=== PATIENT | female | born 1995 | race American Indian/Alaskan Native ===

== ENCOUNTER 2018-10-06 17:00 | Inpatient (IN) | payer OTHER ==
--- NOTE | 2018-10-06 17:41 | Emergency Department Report ---
HPI - General Chief Complaint: Dizziness Time Seen by Provider: 10/06/18 17:40 - HPI HPI: Room 8 The patient is 23-year-old female presenting with a chief complaint of dizziness. States for one day she's felt dizzy and drowsy. Patient complains of diffuse weakness. The patient has a history of Graves' disease and was started on methimazole approximately 2 weeks ago. The patient states earlier she had lower abdominal pain but it has since resolved. Patient states she's had intermittent headache today as well. Patient currently denies pain naus ea/vomiting or shortness of breath. Patient states her main complaint is feeling drowsy currently Location: [See above] Duration: One day Quality: Drowsy Severity: Moderate Modifying factors: [see above] Context: [see above] Mode of transportation: Unknown ED Past Medical Hx - Past Medical History Additional medical history: GRAVES DISEASE - Surgical History Past Surgical History?: No - Family History Family history: no significant - Social History Smoking Status: Never Smoker Substance Use Type: None (denies illicit drug use), Alcohol (occasional) ED Review of Systems ROS: Stated complaint: DIZZY/FATIGUE/THRYOID Other details as noted in HPI Constitutional: weakness Eyes: denies: eye pain ENT: denies: throat pain Respiratory: denies: shortness of breath Cardiovascular: denies: chest pain Endocrine: no symptoms reported Gastrointestinal: abdominal pain. denies: nausea, vomiting Genitourinary: denies: dysuria Musculoskeletal: denies: back pain Neurological: headache, other (dizziness) Physical Exam - Physical Exam Vital Signs: Vital Signs 10/06/18 17:15 Temperature 99.9 F H Pulse Rate 126 H Respiratory 18 Rate Blood Pressure 151/85 O2 Sat by Pulse 99 Oximetry Physical Exam: GENERAL: The patient is well-developed well-nourished female lying on stretcher not appearing to be in acute distress. [] HEENT: Normocephalic. Atraumatic. Extraocular motions are intact. Patient has moist mucous membranes. NECK: Supple. Trachea midline CHEST/LUNGS: Clear to auscultation. There is no respiratory distress noted. HEART/CARDIOVASCULAR: Regular. There is tachycardia. There is no gallop rub or murmur. ABDOMEN: Abdomen is soft, nontender. Patient has normal bowel sounds. There is no abdominal distention. SKIN: There is no rash. There is no edema. There is no diaphoresis. NEURO: The patient is awake, alert, and oriented. The patient is cooperative. The patient has no focal neurologic deficits. The patient has normal speech. Cranial nerves II through XII grossly intact, no drift MUSCULOSKELETAL: There is no evidence of acute injury. ED Course Vital Signs 10/06/18 17:15 Temperature 99.9 F H Pulse Rate 126 H Respiratory 18 Rate Blood Pressure 151/85 O2 Sat by Pulse 99 Oximetry ED Medical Decision Making - Lab Data Result diagrams: 10/06/18 17:41 10/06/18 17:41 Laboratory Tests 10/06/18 10/06/18 10/06/18 17:41 17:41 17:41 WBC 4.1 L RBC 4.46 Hgb 13.1 Hct 39.3 MCV 88 MCH 29 MCHC 33 RDW 12.8 L Plt Count 270 Sodium 138 Potassium 4.2 Chloride 100.9 Carbon Dioxide 25 Anion Gap 16 BUN 8 Creatinine 0.7 Estimated GFR > 60 BUN/Creatinine Ratio 11 Glucose 101 H Calcium 9.4 TSH 0.007 L Free T4 2.09 H Urine Color Urine Turbidity Urine pH Ur Specific Penn Urine Protein Urine Glucose (UA) Urine Ketones Urine Blood Urine Nitrite Urine Bilirubin Urine Urobilinogen Ur Leukocyte Esterase Urine WBC (Auto) Urine RBC (Auto) U Epithel Cells (Auto) Urine Mucus Urine HCG, Qual 10/06/18 17:47 WBC RBC Hgb Hct MCV MCH MCHC RDW Plt Count Sodium Potassium Chloride Carbon Dioxide Anion Gap BUN Creatinine Estimated GFR BUN/Creatinine Ratio Glucose Calcium TSH Free T4 Urine Color Yellow Urine Turbidity Clear Urine pH 8.0 H Ur Specific Penn 1.017 Urine Protein <15 mg/dl Urine Glucose (UA) Neg Urine Ketones Neg Urine Blood Neg Urine Nitrite Neg Urine Bilirubin Neg Urine Urobilinogen 2.0 Ur Leukocyte Esterase Mod Urine WBC (Auto) 4.0 Urine RBC (Auto) 3.0 U Epithel Cells (Auto) 5.0 Urine Mucus Few Urine HCG, Qual Negative - EKG Data -: EKG Interpreted by Md EKG shows normal: sinus rhythm Rate: tachycardia (110 bpm) - EKG Data When compared to previous EKG there are: previous EKG unavailable Interpretation: other (no ischemic changes seen) - Radiology Data Radiology results: report reviewed (CT head), image reviewed (CT head) [facility] [address] [place] [address] Cat Scan Report Signed Patient: SATHISH WANG MR#: [id number] : 1995 Acct:[id number] Age/Sex: 23 / F ADM Date: 10/06/18 Loc: ED Attending Dr: Ordering Physician: ADRI LEONARD MD Date of Service: 10/06/18 Procedure(s): CT head/brain wo con Accession Number(s): [id number] cc: ADRI LEONARD MD FINAL REPORT EXAM: CT HEAD/BRAIN WO CON HISTORY: dizziness, drowsiness TECHNIQUE: 2.5 millimeter axial images from the skullbase to the vertex. Comparison: None FINDINGS: There is no evidence of an acute intracranial process, intracranial hemorrhage or mass effect. The ventricles are normal size. The visualized portions of the orbits, paranasal and mastoid sinuses are unremarkable. The bony structures are unremarkable. IMPRESSION: 1. Normal study. If the patient remains symptomatic MRI may be helpful for further evaluation Transcribed By: ED Dictated By: LYLA GARCIA MD Electronically Authenticated By: LYLA GARCIA MD Signed Date/Time: 10/06/181841 DD/ 40 TD/TT: 10/06/181840 - Medical Decision Making Patient's heart rate continues to fluctuate between 109 and 133. Will administer propanolol and admit the patient to the hospital for further observation - Differential Diagnosis thyrotoxicosis, thyroid storm, symptomatic anemia, hyponatremia Critical care attestation.: If time is entered above; I have spent that time in minutes in the direct care of this critically ill patient, excluding procedure time. ED Disposition Clinical Impression: Thyrotoxicosis, Graves disease, Tachycardia Disposition: OP ADMIT IP TO THIS HOSP Is pt being admited?: Yes Does the pt Need Aspirin: Yes Condition: Fair Time of Disposition: 19:30 (hospitalist paged (Dr Muro))
[2018-10-06 17:47] LABS: Hematocrit 39.3 % (30.3-42.9); Hemoglobin 13.1 gm/dl (10.1-14.3); Mean Corpuscular HGB Conc 33 % (30-34); Mean Corpuscular Volume 88 fl (79-97); Platelet Count 270 K/mm3 (140-440); Red Blood Count 4.46 M/mm3 (3.65-5.03); Red Cell Distribution Width 12.8 % (13.2-15.2)
[2018-10-06] MEDS ORDERED: NACL 0.9% 1000 ML 1,000 ML IV ONE (17:55)
[2018-10-06 18:02] LABS: BUN/Creatinine Ratio 11; Blood Urea Nitrogen 8 mg/dL (7-17); Calcium 9.4 mg/dL (8.4-10.2); Hemolysis Index 0
[2018-10-06 18:03] LABS: Bilirubin,Urine NEG (Negative); Blood,Urine NEG (Negative); Color,Urine Yellow (Yellow); Mucus,Urine FEW /HPF; Protein,Urine <15 mg/dL mg/dL (Negative)
[2018-10-06 18:12] LABS: Free T4 (Free Thyroxine) 2.09 ng/dL (0.76-1.46)
[2018-10-06 18:21] LABS: HCG Qualitative,Urine Negative (Negative)
--- NOTE | 2018-10-06 18:42 | Cat Scan Report ---
FINAL REPORT EXAM: CT HEAD/BRAIN WO CON HISTORY: dizziness, drowsiness TECHNIQUE: 2.5 millimeter axial images from the skullbase to the vertex. Comparison: None FINDINGS: There is no evidence of an acute intracranial process, intracranial hemorrhage or mass effect. The ventricles are normal size. The visualized portions of the orbits, paranasal and mastoid sinuses are unremarkable. The bony structures are unremarkable. IMPRESSION: 1. Normal study. If the patient remains symptomatic MRI may be helpful for further evaluation
[2018-10-06] MEDS ORDERED: INDERAL IV ONE (19:29)
[2018-10-06] MEDS ORDERED: TYLENOL PO PRN (22:45)
[2018-10-06] MEDS ORDERED: SODIUM CHLORIDE FLUSH SYRINGE 10 ML IV PRN (22:45)
[2018-10-06] MEDS ORDERED: ZOFRAN IV PRN (22:45)
--- NOTE | 2018-10-06 22:49 | History and Physical Report ---
History of Present Illness Date of examination: 10/06/18 Date of admission: 10/06/18 19:32 History of present illness: 23-year-old woman with a history of Graves' disease, diagnosed 2 weeks ago comes emergency room complaining of fatigue, palpitations, feeling dizzy. In the last month she's been having fatigue and diaphoresis and symptoms are improved when she was started on methimazole Review of systems Constitutional: no weight loss, chills, fever Ears, eyes, nose, mouth and throat: no nasal congestion, no nasal discharge, no sinus pressure, no vision change, no red eye. Neck: No neck pain or rigidity. Cardiovascular: no palpitations, chest pain Respiratory: no cough, shortness of breath Gastrointestinal: no hematochezia, abdominal pain Genitourinary : no frequency , no hematuria Musculoskeletal: no joint swelling or muscle ache Integumentary: no rash, no pruritis Neurological: no parathesias, no focal weakness Endocrine: no cold or heat intolerance, no polyuria or polydipsia Hematologic/Lymphatic: no easy bruising, no easy bleeding, no gland swelling Allergic/Immunologic: no urticaria, no angioedema. PAST MEDICAL HISTORY: Graves' disease, PAST SURGICAL HISTORY: None SOCIAL HISTORY: Denies alcohol, drugs, +tobacco FAMILY HISTORY: Hypertension Medications and Allergies Allergies Allergy/AdvReac Type Severity Reaction Status Date / Time No Known Allergies Allergy Unverified 10/06/18 17:21 Home Medications Medication Instructions Recorded Confirmed Last Taken Type Methimazole 10 mg PO DAILY #30 tab 10/07/18 Unknown Rx RX: Propranolol LA [Inderal LA] 60 mg PO QDAY #30 capsule 10/07/18 Unknown Rx Active Meds: Active Medications Acetaminophen (Tylenol) 650 mg PO Q4H PRN PRN Reason: Pain MILD(1-3)/Fever >100.5/PEREZ Ondansetron HCl (Zofran) 4 mg IV Q8H PRN PRN Reason: Nausea And Vomiting Propranolol HCl (Inderal La) 30 mg PO QDAY IRAM Sodium Chloride (Sodium Chloride Flush Syringe 10 Ml) 10 ml IV BID IRAM Sodium Chloride (Sodium Chloride Flush Syringe 10 Ml) 10 ml IV PRN PRN PRN Reason: LINE FLUSH Exam - Physical Exam Narrative exam: General Apperance: The patient lying in bed, breathing comfortable HEENT: Normocephalic, atraumatic. Pupils equally round and reactive to light, EOMI, no sclericterus or JVD or thyromegaly or nodule. , no carotid bruit, mucous membranes moist, no exudate or erythema Heart: S1-S2, regular is rhythm Lungs: Clear to auscultation bilaterally, breathing comfortable Abdomen: Positive bowel sounds, soft, nontender, nondistended, no organomegaly Extremities: No edema cyanosis clubbing Skin: no rash, nodule, warm and dry Neuro: cranial nerves 2-12 intact, speech is fluent, motor/sensory intact - Constitutional Vitals: Temp Pulse Resp BP Pulse Ox 97.6 F 101 H 18 125/66 100 10/06/18 19:51 10/06/18 21:30 10/06/18 21:30 10/06/18 21:30 10/06/18 21:30 Results - Labs CBC & Chem 7: 10/06/18 17:41 10/07/18 05:33 Labs: Abnormal lab results 10/06/18 10/06/18 10/06/18 Range/Units 17:41 17:41 17:41 WBC 4.1 L (4.5-11.0) K/mm3 RDW 12.8 L (13.2-15.2) % Glucose 101 H (65-100) mg/dL TSH 0.007 L (0.270-4.200) mlU/mL Free T4 2.09 H (0.76-1.46) ng/dL Urine pH (5.0-7.0) 10/06/18 Range/Units 17:47 WBC (4.5-11.0) K/mm3 RDW (13.2-15.2) % Glucose (65-100) mg/dL TSH (0.270-4.200) mlU/mL Free T4 (0.76-1.46) ng/dL Urine pH 8.0 H (5.0-7.0) - Imaging and Cardiology EKG: image reviewed Chest x-ray: report reviewed CT Scan - head: report reviewed Assessment and Plan Assessment Palpitations secondary to Graves' disease Graves' disease Plan Start propanolol, continue with methimazole Check cardiac enzymes, urine toxicology DVT prophylaxis
--- NOTE | 2018-10-06 23:37 | XRay Report ---
FINAL REPORT EXAM: XR CHEST 1V AP HISTORY: tachycardia TECHNIQUE: Frontal portable view of the chest Comparison: None FINDINGS: There is no evidence of infiltrate, pneumothorax or pleural fluid collection. The cardiomediastinal silhouette is normal in appearance. The bony structures are unremarkable. IMPRESSION: 1. No evidence of an acute pulmonary process.
[2018-10-07 02:29] LABS: Creatine Kinase MB < 1.0 ng/mL (0.0-4.0)
[2018-10-07 06:32] LABS: BUN/Creatinine Ratio 14; Blood Urea Nitrogen 7 mg/dL (7-17); Calcium 9.1 mg/dL (8.4-10.2); Hemolysis Index 0
[2018-10-07 06:42] LABS: Creatine Kinase MB < 1.0 ng/mL (0.0-4.0)
[2018-10-07] MEDS ORDERED: SODIUM CHLORIDE FLUSH SYRINGE 10 ML IV SCH (10:00)
[2018-10-07] MEDS ORDERED: INDERAL LA PO SCH (10:00)
--- NOTE | 2018-10-07 12:08 | Discharge Summary ---
Providers - Providers Date of Admission: 10/06/18 19:32 Date of discharge: 10/07/18 Attending physician: MONTEZ ALCOCER Primary care physician: LOUISE BECERRIL Hospitalization Condition: Stable Hospital course: Patient is a 23-year-old woman with a history of recently diagnosis Graves' disease (not diagnosis here) and was started on Tapezole who presented to [facility] ED with fatigue, palpitations and dizzy. Heart rate was up to 126. She was started successfully on Propranolol which resolved symptoms and the tachycardia. Palpitations secondary to Graves' disease Graves' disease Tachycardia with hyperthyroidism Disposition: DC- TO HOME OR SELFCARE Time spent for discharge: 32 minutes Core Measure Documentation - Palliative Care Palliative Care/ Comfort Measures: Not Applicable - Core Measures Any of the following diagnoses?: none - VTE Discharge Requirements Deep Vein Thrombosis/Pulmonary Embolism Present on Admission: No Has pt received <5 days of overlap therapy or INR<2.0: No Anticoagulant overlap therapy prescribed at discharge: No Contraindication No Overlap Therapy order at DC: Not Indicated Exam - Physical Exam Narrative exam: Gen: WDWN, NAD, Awake, Alert, Orientated HEENT: NCAT, EOMI, PERRL, OP Clear Neck: supple, no adenopathy, no thyromegaly, no JVD CVS/Heart: RRR, normal S1S2, pulses present bilaterally Chest/Lungs: CTA B, Symmetrical chest expansion, good air entry bilaterally GI/Abdomen: soft, NTND, good bowel sounds, no guarding or rebound /Bladder: no suprapubic tenderness, no CVA or paraspinal tenderness Extermity/Skin: no c/c/e, no obvious rash MSK: FROM x 4 Neuro: CN 2-12 grossly intact, no new focal deficits Psych: calm - Constitutional Vitals: Temp Pulse Resp BP Pulse Ox 98.2 F 92 H 20 124/61 100 10/07/18 08:43 10/07/18 10:39 10/07/18 08:43 10/07/18 10:39 10/07/18 11:43 Plan Activity: other (no strenous activity unless cleared by PCP) Diet: regular Additional Instructions: I would not recommend unless cleared by PCP Follow up with: LOUSIE BECERRIL MD [Primary Care Provider] - 7 Days Prescriptions: Methimazole 10 mg PO DAILY #30 tab RX: Propranolol LA [Inderal LA] 60 mg PO QDAY #30 capsule
[2018-10-07 14:10] VITALS: BP 128/69
[2018-10-07] MEDS ORDERED: LEVAQUIN 500MG/100ML 500 MG/100 ML BAG IV SCH (22:51)
== END 2018-10-07 16:00 | disposition home or self-care (01) | DRG 645 ==
LOC: ED 17:00 → 4A 19:32
PROVIDERS: ADMIT Internal Medicine; ATTEND Internal Medicine
DX: E05.00 Thyrotoxicosis with diffuse goiter without thyrotoxic crisis or storm (principal); R00.0 Tachycardia, unspecified; Z72.89 Other problems related to lifestyle; Z82.49 Family history of ischemic heart disease and other diseases of the circulatory system
CPT/HCPCS: 36415; 70450; 71045; 80048; 81001; 81025; 82550; 82553; 84439; 84443; 84484; 85027; 93005; 93010; 96361; 96374; G0378; J1800; J7030